=== PATIENT | female | born 1945 | race Caucasian/White ===

== ENCOUNTER 2019-09-14 12:52 | Inpatient (IN) ==
[2019-09-14] MEDS ORDERED: NS 1,000 ML IV ONE ×2 (13:20→14:53)
[2019-09-14] MEDS ORDERED: DILAUDID IV ONE ×3 (13:20→14:20)
[2019-09-14 14:04] LABS: BASO# 0.06 X1000 (0.0-0.2); BASO% 0.2 % (0.0-0.8); EOS# 0.38 X1000 (0.0-0.7); EOS% 1.4 % (0.0-10.0); HEMATOCRIT 47.1 % (37.0-47.0); HEMOGLOBIN 15.2 g/dL (12.0-16.0); IMM GRAN# 0.11 X1000 (0.0-0.04); IMM GRAN% 0.4 % (0.0-0.5); LYMPH# 4.35 X1000 (1.2-3.4); LYMPH% 16.3 % (20.5-51.1); MCH 27.4 PG (27-31); MCHC 32.3 g/dL (33-37); MCV 84.9 FL (81-99); MONO# 1.46 X1000 (0.11-0.59); MONO% 5.5 % (1.7-9.3); MPV 9.8 FL (7.4-10.4); NEUT# 20.37 X1000 (1.4-6.5); NEUT% 76.2 % (42.2-75.2); PLT 309 X1000 (130-400); RBC 5.55 XMIL (4.2-5.4); RDW 14.8 % (11.5-14.5); WBC 26.73 X1000 (4.8-10.8)
[2019-09-14] MEDS ORDERED: PHENERGAN IV ONE (14:09)
[2019-09-14] MEDS ORDERED: SODIUM CHLORIDE 0.9% INJ ONE (14:09)
[2019-09-14] MEDS ORDERED: NS 500 ML IV ONE (14:54)
[2019-09-14] MEDS ORDERED: ZOSYN 3.375 GM in NS 50 ML IV ONE (16:28)
[2019-09-14 17:39] LABS: AGAP 16; ALB/GLOB RATIO 1.2; ALBUMIN 3.5 g/dL (3.5-5.0); ALKALINE PHOSPHATASE 107 U/L (32-104); BUN 16 mg/dL (8-22); CALCIUM 10.4 mg/dL (8.8-10.2); CHLORIDE 101 mmol/L (98-107); COSMO 284; CREATININE 0.7 mg/dL (0.5-0.9); ESTIMATED GFR > 60; GLUCOSE 131 mg/dL (70-104); GOT 30 U/L (10-30); GPT 36 U/L (10-36); POTASSIUM 3.3 mmol/L (3.5-5.1); SODIUM 141 mmol/L (136-145); TCO2 24 mmol/L (25-35); TOTAL BILIRUBIN 0.31 mg/dL (0.20-1.00); TOTAL PROTEIN 6.5 g/dL (6.3-8.3)
--- NOTE | 2019-09-14 18:02 | Diag Imaging Result Doc PS360 ---
EXAM: CT ABDOMEN/PELVIS W/O CONTRAST HISTORY: abd pain TECHNIQUE: CT abdomen and pelvis without oral or intravenous contrast COMPARISON: 07/09/2011 FINDINGS: No calcified gallstones or adjacent inflammation. No focal hepatic abnormality identified on this noncontrasted exam. There is a moderate sized hiatal hernia. No splenomegaly. Mild inflammatory changes about the pancreas. No pancreatic calcifications. No pseudocyst. There are bilateral nonobstructing renal stones. There is scarring to the left kidney. No hydronephrosis. Prominent atherosclerosis. No aortic aneurysm. Moderate to prominent stool throughout the colon. There are scattered colonic diverticula. No inflammation about the cecum. No abscess. The urinary bladder is moderately distended and normal. The uterus has been removed. No pelvic mass. There are L5 pars defects. IMPRESSION: 1.Likely pancreatitis. Clinical and laboratory analysis recommended. 2.Colonic diverticulosis 3.Constipation 4.Hysterectomy 5.Prominent atherosclerosis 6.Bilateral nephrolithiasis 7.Hiatal hernia This exam was performed using automated exposure control, adjustment of mA or kV according to patient size, and/or use of iterative reconstruction technique. Electronically signed by Ulysses Cedillo 09/14/2019 5:59 PM
--- NOTE | 2019-09-14 18:33 | PROVIDER DOCUMENTATION ---
This chart was entered by Niurka Silver Scribe, acting as scribe for Kendall Campbell DO. HPI-Abdominal Pain/GI Problem - General Chief Complaint: Abdominal Pain Stated Complaint: ABD PAIN,VOMITING Time Seen by Provider: 09/14/19 13:13 Source: patient Allergies/Adverse Reactions: Patient Allergies Allergy/AdvReac Type Severity Reaction Status Date / Time No Known Allergies Allergy Verified 12/17/15 10:14 Home Medications: Home Medication List Medication Instructions Recorded Confirmed Last Taken Type Hydrochlorothiazide 25 mg PO DAILY 07/01/13 12/17/15 1 Day Ago History ~12/16/15 Hydroxychloroquine [Plaquenil] 200 mg PO DAILY 07/01/13 12/17/15 1 Day Ago History ~12/16/15 SIMVAstatin [Zocor] 40 mg PO QHS 07/01/13 12/17/15 1 Day Ago History ~12/16/15 Duloxetine [Cymbalta] 30 mg PO BID 12/17/15 12/17/15 1 Day Ago History ~12/16/15 Metoclopramide [Reglan] 10 mg PO DAILY 12/17/15 12/17/15 1 Day Ago History ~12/16/15 - History of Present Illness-ABD Nature of Presenting Problems: Patient is a 74 y/o female presenting to the ED today c/o abdominal pain and nausea/vomiting. Patient reports onset of symptoms approximately 2-3 hours ago after eating breakfast and reports coffee-ground emesis. Patient states a few days ago, she had a large bloody bowel movement. Patient reports that approximately 3 weeks ago, she was discharged from a Trauma ICU at a hospital in [place] after a fall resulting in a brain bleed. Patient reports she has had minimal pain since discharge and has been taking her medication PRN. Patient reports her last bowel movement was "several days ago". Patient reports a prior hiatal hernia repair but denies all other abdominal surgeries. Patient denies all other signs/symptoms. Abdominal Pain Onset Location: reports: RUQ Pain Radiation: reports: epigastric Quality of Pain: reports: sharp Onset/Duration: reports: abrupt, 1-3 hours ago Timing: reports: still present Modifying Factors: worse with: lying down Associated Symptoms: reports: vomiting Last BM: 3 days ago Dark Stools Present?: reports: maroon (a few days ago) # of Diarrhea Episodes: 0 Rectal Pain: reports: none Emesis Description: reports: coffee grounds Bruising or Bleeding Gums?: No Similar Symptoms Previously?: No Recently seen or treated by another doctor?: No Review of Systems - Adult - REVIEW OF SYSTEMS - ADULT Constitutional: denies: chills, fever Eyes: reports: no symptoms reported Ears, Nose, Mouth & Throat: reports: no symptoms reported Cardiovascular: denies: chest pain Respiratory: denies: cough, shortness of breath Gastrointestinal: reports: abdominal pain, nausea, vomiting. denies: diarrhea Genitourinary: reports: no symptoms reported Musculoskeletal: reports: no symptoms reported Integumentary: reports: no symptoms reported Neurological: reports: no symptoms reported Psychiatric: reports: no symptoms reported Endocrine: reports: no symptoms reported Hematologic/Lymphatic: reports: no symptoms reported Allergic/Immunologic: reports: no symptoms reported All Other Systems: Reviewed and Negative Past History - Adult - PAST MEDICAL HISTORY-ADULT Review of Records: reports: Old Records Reviewed, Nursing Assessment Review, Medications Reviewed, Social history reviewed & non-contributory. Genitourinary: reports: kidney stones - PRIOR SURGERIES/PROCEDURES Surgical/Procedure History: reports: reviewed, not pertinent - IMMUNIZATION STATUS Childhood Immunizations: See Nurse Assessment Flu Vaccine: See Nurse Assessment - FAMILY HISTORY Family History: reviewed, not pertinent Physical Exam-General - PHYSICAL EXAM-ADULT Initial Vital Signs Reviewed: Yes - CONSTITUTIONAL General Appearance: alert, mild distress - EYES Eyes: PERRL/EOMI, pink conjunctivae - HEAD, EARS, NOSE, MOUTH & THROAT HENMT: normocephalic/atraumatic, moist mucous membranes, normal ENT inspection, TMs normal, pharynx normal - NECK Neck: full range of motion, normal inspection - RESPIRATORY Respiratory: lungs clear, normal breath sounds, no respiratory distress, no accessory muscle use - CARDIOVASCULAR Cardiovascular: regular rate, rhythm, no edema - GASTROINTESTINAL (ABDOMEN) Abdominal Exam: soft, guarding (voluntary), tenderness (RUQ and epigastric) - GENITOURINARY Rectal Exam: normal exam, other (brown stool) - LYMPHATIC Lymphatic: no adenopathy - MUSCULOSKELETAL Back Exam: normal inspection Extremity: normal range of motion, normal gait, normal inspection - SKIN Integumentary: normal color, normal turgor, warm/dry - NEUROLOGIC Neurologic: grossly normal, no motor/sensory deficits - PSYCHIATRIC Psych/Mental Status: normal mood/affect, normal thought content, normal thought process Progress - PLAN OF CARE/RESULTS Progress/Plan/Lab Results: Vital Signs - 8 hr 09/14/19 13:04 Temperature 97.3 F L Pulse Rate 90 Respiratory Rate 16 Blood Pressure 98/70 O2 Sat by Pulse Oximetry 95 Orders Category Date Time Status NEWS Score 2-4:Order NEWS Lactate Series NOW Care 09/14/19 13:10 Active LACTATE, PLASMA [CHEM] Lab 09/14/19 13:15 Uncollected LACTATE, PLASMA [CHEM] Lab 09/14/19 16:15 Uncollected LACTATE, PLASMA [CHEM] Lab 09/14/19 19:15 Uncollected Result Diagrams: 09/14/19 13:35 09/14/19 17:00 - REASSESSMENT Reassessment #1 Time Reassessed: 16:27 Status: improving (slight improvement of pain. I have appologized about the wait for CT and explained why.) Reassessment #2 Time Reassessed: 18:30 Status: unchanged - CONSULTS/PCP/HOSPITALIST Notification #1 *Consult/PCP/Hospitalist*: Griselda FONSECA Time Discussed: 18:30 ([facility] Consult Disposition: Will see in ED Departure - Departure Date of Disposition Decision: 09/14/19 Time of Disposition Decision: 18:32 DIAGNOSIS: Pancreatitis Qualifiers: Chronicity: acute Pancreatitis type: idiopathic Acute pancreatitis com plication: unspecified Qualified Code(s): K85.00 - Idiopathic acute pancreatitis without necrosis or infection Disposition: ADMITTED INPATIENT 09 Certified Medical Emergency: Emergent Condition: Fair Referrals and Follow-Ups: Tani Youssef MD [Primary Care Provider] - - Critical Care Note This patient required my direct & personal management of CC.: No Attestation - Physician/ SID Attestation Patient care was provided by Advanced Practice Provider:: No The physician spent face to face time with patient:: Yes Advanced Practice Provider documentation review:: Supervising physician onsite and consulted in the evaluation and care of this patient. The physician did have a face to face encounter with the patient. This chart was documented by the indicated scribe, (Niurka Silver, Shauna) and accurately reflects the services I performed and decisions made by me, Kendall Campbell DO, as attested by the provider's signature.
[2019-09-14] MEDS ORDERED: DILAUDID ONE (18:47)
[2019-09-14] MEDS ORDERED: POTASSIUM CHLORIDE 40 MEQ/SWI 40 MEQ/100 ML IVPB IV ONE (19:27)
[2019-09-14] MEDS ORDERED: SODIUM CHLORIDE 0.9% INJ SCH (21:15)
[2019-09-14] MEDS: LR 1,000 ML IV SCH (21:29)
[2019-09-14] MEDS: DILAUDID IV PRN (21:32)
[2019-09-14] MEDS: PHENERGAN IV PRN (21:33)
[2019-09-14] MEDS: SODIUM CHLORIDE 0.9% INJ PRN (21:34)
[2019-09-14] MEDS: PROTONIX IV SCH (21:50)
[2019-09-14] MEDS: POTASSIUM CHLORIDE 20 MEQ/SWI 20 MEQ/100 ML IVPB IV SCH ×2 (21:54→23:54)
--- NOTE | 2019-09-14 21:58 | HISTORY AND PHYSICAL ---
CHIEF COMPLAINT: Abdominal pain, nausea, vomiting. HISTORY OF PRESENT ILLNESS: Ms. Chiang is a 74-year-old female that had acute onset abdominal pain today at noon with nausea and vomiting. It was after eating breakfast. She reportedly a few days ago had a large bowel movement with blood in it. She stated that the emesis was coffee ground appearing. She was recently discharged from a trauma ICU in [place] after falling and having a brain bleed. This was around 3 weeks ago. She was discharged with p.r.n. medications and she states that the pain is sharp in the epigastric area and right upper quadrant. Nothing makes it better. Nothing makes it worse. She denied any diarrhea or other stools with blood in them. However, she did state that she has not had any bowel movements for several days. However, she could not tell me how many days other than GERD. Her laboratory data showed an elevated lipase. A CT scan confirmed acute pancreatitis. She will be admitted to [facility] for further evaluation and treatment. PAST MEDICAL HISTORY: See HPI. PREVIOUS SURGICAL HISTORY: States that she had surgery for a hiatal hernia, assuming it was a laparoscopic Baljit fundoplication. However, I am unsure. The patient was a fairly poor historian. SOCIAL HISTORY: Lives at home with her . Very rare alcohol, usually just a drink or 2 on the holidays. No illicit drugs. No tobacco. FAMILY HISTORY: Coronary artery disease in both parents. One brother had Hodgkin's lymphoma. ALLERGIES: No known drug allergies. HOME MEDICATIONS: I believe she takes Plaquenil. She was unable to tell me her other home medications or the p.r.n. medications that she was started on after her fall. REVIEW OF SYSTEMS: Fourteen-point review of systems conducted with the patient. Pertinent positives listed above in the HPI. All other systems reviewed and found to be negative. PHYSICAL EXAMINATION: VITAL SIGNS: Temperature 97.6, pulse 96, respirations 22, blood pressure 189/105, oxygen saturation 94% on room air. GENERAL: A 74-year-old female in moderate distress associated with pain and nausea lying in the ER stretcher. She is not a great historian and her does most of the talking for her. I believe this is related to her pain being exacerbated. HEENT: Head is atraumatic, normocephalic. Pupils equal, round, reactive to light. Extraocular eye movement is intact. Sclera is anicteric. Conjunctiva is pink. Oral mucosa is moist. NECK: Supple. No JVD. No thyromegaly. Trachea is midline. No cervical lymphadenopathy. CARDIAC: S1, S2 appreciated. No murmurs, gallops, rubs. LUNGS: Clear to auscultation bilaterally. No rhonchi, wheezes or rales. Symmetric rise and fall with respirations. ABDOMEN: Soft, nondistended. Tender in the epigastric area and right upper quadrant. No rebound tenderness. No pulsatile mass. No organomegaly. Bowel sounds present all 4 quadrants, normoactive. EXTREMITIES: No clubbing, cyanosis or edema. Two-plus pedal pulses bilaterally. GENITOURINARY: No bladder distention. Patient voids. Otherwise deferred. NEUROLOGICAL: Alert and oriented times 3. Cranial nerves 2 through 12 grossly intact. DIAGNOSTIC DATA: CT of the abdomen and pelvis shows probable acute pancreatitis, colonic diverticulosis, constipation, hysterectomy, prominent arthrosclerosis, bilateral nephrolithiasis and hiatal hernia. LABORATORY DATA: WBC 26.73. Hemoglobin 15.2. Hematocrit 47.1. Platelet count 309. Sodium 141. Potassium 3.3. Chloride 101. Carbon dioxide 24. BUN 16. Creatinine 0.7. Glucose 131. Lipase 2234. Plasma lactate 3.5. ASSESSMENT: 1. Acute pancreatitis of unknown etiology. 2. Leukocytosis, possibly reactive. However, it could be infectious in nature. 3. Lupus, aware. 4. Recent fall with head trauma and brain bleed. 5. Hypokalemia. 6. Hyperglycemia with no diagnosis of diabetes mellitus. PLAN: Admit patient to [facility]. She was given normal saline boluses in the emergency room. We will start lactated Ringer's at 100 mL an hour. Zofran and Phenergan to be alternated for nausea. Dilaudid as needed for pain. A urine sample has not been obtained. Patient appears to have a source of infection. However, it could be reactive. We will start prophylactically on Zosyn 3.375 IV q.6 hours. The gallbladder appeared normal on the CT scan. There was mention of diverticulosis but no mention of diverticulitis and, again, the urine is pending. Hold the patient NPO. Unsure of the source of the pancreatitis. It is possible that it could be medication induced as the patient just started new medications. However, she was unable to tell me which ones. We will check a triglyceride level. Patient does have autoimmune history in the form of lupus. Cannot exclude that as a possibility for causing her pancreatitis. We will check a triglyceride level. Treat her potassium and recheck. Further recommendation per patient clinical course. Dictated by RAYMUNDO Christiansen for Marito Cristobal MD I have performed a face to face diagnostic evaluation. Labs/xrays- reviewed. Exam- Chest clear, Abd- diffuse tenderness. A/P- Acute pancreatitis- Admit, NPO, Pain control. GI consult. cc: RAYMUNDO Christiansen MD Thomas E. Lockard, DO DINH
[2019-09-15] MEDS: ZOFRAN IV PRN ×4 (00:28→23:52)
[2019-09-15] MEDS: ZOSYN 3.375 GM in NS 50 ML IV SCH ×5 (00:28→23:52)
[2019-09-15] MEDS: DILAUDID IV PRN ×7 (00:29→23:51)
[2019-09-15 02:22] LABS: URINE SOURCE CATH
[2019-09-15] MEDS: SODIUM CHLORIDE 0.9% INJ PRN ×3 (02:45→20:23)
[2019-09-15] MEDS: PHENERGAN IV PRN ×4 (02:45→20:23)
[2019-09-15 03:07] LABS: BILIRUBIN URINE NEGATIVE (NEGATIVE); BLOOD URINE NEGATIVE (NEGATIVE); COLOR YELLOW; GLUCOSE URINE 100 mg/dL (NEGATIVE); KETONE URINE NEGATIVE (NEGATIVE); LEUKOCYTES URINE NEGATIVE (NEGATIVE); NITRITE URINE NEGATIVE (NEGATIVE); PH URINE 6.5; PROTEIN URINE 50 mg/dL (NEGATIVE); SP GRAVITY URINE 1.019; TURBIDITY URINE CLEAR (CLEAR); UROBILINOGEN URINE NORMAL (NORMAL)
[2019-09-15 03:08] LABS: UR EPITHELIAL CELLS <10 /HPF (<10); URINE BACTERIA NEGATIVE /HPF; URINE RBC <10 /HPF (<10); URINE WBC <10 /HPF (<10)
[2019-09-15] MEDS: LR 1,000 ML IV SCH ×4 (06:32→17:08)
[2019-09-15 06:35] LABS: BASO# 0.03 X1000 (0.0-0.2); BASO% 0.1 % (0.0-0.8); EOS# 0.02 X1000 (0.0-0.7); EOS% 0.1 % (0.0-10.0); HEMOGLOBIN 16.4 g/dL (12.0-16.0); IMM GRAN# 0.09 X1000 (0.0-0.04); IMM GRAN% 0.4 % (0.0-0.5); LYMPH% 4.1 % (20.5-51.1); MCH 27.8 PG (27-31); MCHC 32.8 g/dL (33-37); MCV 84.9 FL (81-99); MONO# 1.27 X1000 (0.11-0.59); MONO% 5.8 % (1.7-9.3); NEUT# 19.43 X1000 (1.4-6.5); NEUT% 89.5 % (42.2-75.2); PLT 230 X1000 (130-400); RBC 5.89 XMIL (4.2-5.4); RDW 15.5 % (11.5-14.5); WBC 21.74 X1000 (4.8-10.8)
[2019-09-15 07:52] LABS: ESTIMATED GFR > 60
[2019-09-15 07:57] LABS: CHLORIDE 104 mmol/L (98-107); POTASSIUM 4.2 mmol/L (3.5-5.1); SODIUM 144 mmol/L (136-145)
[2019-09-15 07:58] LABS: BUN 18 mg/dL (8-22); CREATININE 0.8 mg/dL (0.5-0.9); GLUCOSE 164 mg/dL (70-104); TCO2 15 mmol/L (25-35)
[2019-09-15 08:02] LABS: AGAP 25; COSMO 292
--- NOTE | 2019-09-15 08:44 | Diag Imaging Result Doc PS360 ---
EXAM: US ABDOMEN-COMPLETE - 09/15/2019 HISTORY: abdominal pain TECHNIQUE: Ultrasound abdomen COMPARISON: 04/05/2020 CT abdomen/pelvis without contrast FINDINGS: According to the technologist, the patient was not able to fully cooperate with positioning. There are no substantial abnormalities of the liver or spleen identified. There is no ascites seen. The gallbladder is visualized and demonstrates no abnormality is. There is no evidence of gallstones. The common bile duct is upper normal caliber at 6.4 mm. The visualized pancreas appears somewhat prominent contains ill-defined hypoechoic area at the head, which may relate to pancreatitis. There is no pseudocyst identified. There are no abnormalities in bilateral kidneys identified. The visualized aorta appears normal caliber. The IVC is obscured by artifacts. IMPRESSION: Apparent pancreatitis. No visible gallbladder abnormality. No evidence of gallstones. Upper normal caliber common bile duct at 6.4 mm. Electronically signed by Andres Sarabia 09/15/2019 8:42 AM
--- NOTE | 2019-09-15 08:46 | Diag Imaging Result Doc PS360 ---
EXAM: CHEST-2 VIEWS - 09/15/2019 HISTORY: r/o pna TECHNIQUE: Chest two views COMPARISON: 08/02/2016 FINDINGS: There are artifacts from motion on the lateral view. Heart size appears upper normal. Lungs appear grossly clear. There is no substantial pleural effusion or pneumothorax identified. IMPRESSION: No evidence of pneumonia. Electronically signed by Andres Sarabia 09/15/2019 8:43 AM
[2019-09-15] MEDS: PROTONIX IV SCH (08:53)
[2019-09-15 09:02] LABS: BANDS 2 % (0-1); LYMPHS 6 % (21-51); SEGS 92 % (42-75)
--- NOTE | 2019-09-15 10:49 | PROGRESS NOTE ---
DATE: 09/15/2019 SUBJECTIVE: Patient reports pain is under control. She is sleepy because she had chest pain medication less than 1 hour ago. OBJECTIVE: Vital Signs: Temperature 98.3 degrees, heart rate 104, respiratory rate 22, blood pressure 146/91, O2 saturation 91% on room air. General: This is a 74-year-old chronically ill- appearing, female lying in bed, in no acute distress. Cardiovascular: S1, S2 heard. No murmurs, gallops, or rubs. Regular rate and rhythm. Respiratory: Clear bilaterally to auscultation. No work of breathing or using accessory muscles. Abdomen: Soft, nontender to palpation. Bowel sounds present. No organomegaly. Extremities: No clubbing, cyanosis, or edema. Peripheral pulses present in both legs. Neurological: The patient is a little bit sleepy because she has pain medication. She does follow commands. Moves all extremities. LABORATORY DATA: White cell count 21.74, hemoglobin 16.4, hematocrit 50.0, platelets 230,000 with normal BMP. ASSESSMENT AND PLAN: 1. Acute pancreatitis. The etiology is unknown. We have checked an abdomen ultrasound which did not show any gallstones. Patient is not a known alcoholic. Considering her history of lupus, it could be autoimmune pancreatitis. We will see if we can check IgG for this patient but the treatment will be the same, IV fluids and pain medications. Pain is under control. Continue with the same management. 2. Leukocytosis. According to the CT of the abdomen, it does not look like this pancreatitis is infective. In any case, because of her very elevated white cell count, she has been placed on Zosyn 3.375 every 6 hours and white cell count is getting better. Today is 21,000. So at this point, we will continue with the same management. 3. Recent fall with head trauma and brain bleed. Aware. We will continue to monitor. 4. Hypokalemia, resolved. 5. Hyperglycemia. We will rule out diabetes mellitus by doing hemoglobin A1c. 6. Disposition. We are going to monitor this patient closely. Gastroenterology has been consulted. We will follow recommendations. cc: Ricardo Goodwin MD
--- NOTE | 2019-09-15 13:35 | GASTROENTEROLOGY CONSULTATION ---
DATE: 09/15/2019 REASON FOR CONSULTATION: Acute pancreatitis. HISTORY OF PRESENT ILLNESS: Ms. Keke Licona is a 74-year-old woman with a past medical history of lupus, GERD, hiatal hernia repair with Baljit fundoplication, chronic nausea, colonic polyps, non H. pylori gastritis, and recent hospitalization for a fall with subdural hematoma and skull fracture, who presents with acute abdominal pain with associated nausea and vomiting after eating breakfast yesterday. Currently, she is confused and unable to provide a review of systems. History is obtained from the record and family at bedside. The patient was complaining of severe epigastric and right upper quadrant pain with some associated N/V. No fevers, chest pain, shortness of breath, abnormal weight loss, diarrhea. However, she has had some constipation. She had some dark stool last week; however, hemoccult here is negative and hgb is normal. Of note, the patient was recently hospitalized in the ICU in [place] after having her fall. She was recently seen by GI earlier this past week, on Monday, for unclear reasons and was started on multiple new medications per son's report. REVIEW OF SYSTEMS: Limited. PAST MEDICAL HISTORY: Lupus, GERD, gastritis, history of hiatal hernia, colonic polyps, hypothyroidism. PAST SURGICAL HISTORY: Baljit fundoplication, hysterectomy. SOCIAL HISTORY: She lives at home with her . Rare alcohol. No smoking or drug use. FAMILY HISTORY: No family history of GI malignancies, pancreatitis. Both parents of heart attacks. HOME MEDICATIONS: She is on Plaquenil, Pepcid, Synthroid. Apparently, she was recently started on nitrofurantoin. ALLERGIES: No known drug allergies. PHYSICAL EXAMINATION: Vital Signs: Temperature is 98.3 degrees, heart rate of 104, respiratory rate 22, blood pressure 146/91, O2 saturation 91% on room air. General: The patient is sleepy but arousable, confused. HEENT: Sclerae anicteric. Moist mucous membranes. Extraocular motor intact. Neck: Supple. No JVD or lymphadenopathy. Cardiac: She is tachycardic. No murmurs. Respiratory: Increased work of breathing. Lungs are clear to auscultation bilaterally, anteriorly. No wheezing. Abdomen: Obese, mildly distended, not tympanic, soft, tender to palpation throughout. No rebound or guarding. Extremities: No clubbing, cyanosis, or edema. Neurologic: Moving all extremities symmetrically. LABS: White count of 21.7 from 26 yesterday, hemoglobin 16.4 from 15.2, platelets of 230,000 from 309,000. Sodium 144, potassium 4.2, chloride of 104, bicarb 15 from 24 yesterday, BUN of 18, creatinine of 0.8, glucose of 164. Lactate of 2.7 from 3.5. Lipase of 2234. LFTs are unrevealing. Alkaline phosphatase of 107. UA shows protein and glucose. IMAGING: CT of the abdomen and pelvis without contrast shows pancreatitis, diverticulosis, constipation, hysterectomy, prominent atherosclerosis, bilateral nephrolithiasis, hiatal hernia. Abdominal ultrasound, no visible gallbladder abnormality. No evidence of stones. Common bile duct measuring at 6.4 mm. Chest x-ray, no evidence of pneumonia. ASSESSMENT AND PLAN: Ms. Keke Licona is a 74-year-old woman with a past medical history of gastroesophageal reflux disease, gastritis, lupus, on Plaquenil, and recent subdural hematoma after a fall, who presents with acute pancreatitis from unclear etiology. Ultrasound is negative for gallstones. Common bile duct measured 6.4 mm. She has normal liver function tests without any signs of cholestasis. Her labs are notable for significant leukocytosis which is coming down. She has two blood cultures that are pending. Hemoccult is negative. Labs notable for some initially hypokalemia when she presented which is normal now, lactic acidosis which is improving, low bicarb of 15, 24. She is currently receiving lactated Ringer's at 100 mL per hour, proton pump inhibitor intravenously twice a day, Phenergan for nausea and Zofran as well as needed, Dilaudid as needed for pain, and empiric Zosyn. However, there are no signs of infection based off imaging. Cultures are pending. She does not appear to be having an acute gastrointestinal bleed as her hemoglobin is normal and her Hemoccult is negative. I would not recommend continuing to check fecal occult blood as this is not helpful. No labs were drawn this morning. I have ordered a CBC, CMP, and a LDH. Replete electrolytes as needed. Monitor for changes in hemodynamic status. Serial abdominal exams. # Acute pancreatitis # Leukocytosis # Hypokalemia # Lactic acidosis # Nausea and vomiting # GERD # H/o fundoplication # Lupus Thank you for this consult. We will follow with you. Please call with any questions or concerns. FABRIZIO
[2019-09-16] MEDS: LR 1,000 ML IV SCH ×4 (00:05→14:49)
[2019-09-16] MEDS: DILAUDID IV PRN ×7 (03:05→23:07)
[2019-09-16] MEDS: PHENERGAN IV PRN ×6 (03:09→22:18)
[2019-09-16] MEDS: ZOSYN 3.375 GM in NS 50 ML IV SCH ×5 (05:25→23:09)
[2019-09-16 06:47] LABS: BASO# 0.02 X1000 (0.0-0.2); BASO% 0.1 % (0.0-0.8); HEMATOCRIT 47.6 % (37.0-47.0); HEMOGLOBIN 15.1 g/dL (12.0-16.0); IMM GRAN# 0.09 X1000 (0.0-0.04); IMM GRAN% 0.3 % (0.0-0.5); LYMPH# 0.95 X1000 (1.2-3.4); LYMPH% 3.3 % (20.5-51.1); MCHC 31.7 g/dL (33-37); MCV 85.2 FL (81-99); MONO# 1.78 X1000 (0.11-0.59); MONO% 6.2 % (1.7-9.3); MPV 10.2 FL (7.4-10.4); NEUT% 90.1 % (42.2-75.2); PLT 187 X1000 (130-400); RBC 5.59 XMIL (4.2-5.4); RDW 15.6 % (11.5-14.5); WBC 28.84 X1000 (4.8-10.8)
[2019-09-16] MEDS: SODIUM CHLORIDE 0.9% INJ PRN ×3 (06:51→22:19)
[2019-09-16 06:56] LABS: AGAP 15; ALBUMIN 2.9 g/dL (3.5-5.0); BUN 21 mg/dL (8-22); CHLORIDE 106 mmol/L (98-107); COSMO 294; CREATININE 0.6 mg/dL (0.5-0.9); ESTIMATED GFR > 60; GLUCOSE 144 mg/dL (70-104); PHOSPHORUS 1.6 mg/dL (2.7-4.5); POTASSIUM 3.5 mmol/L (3.5-5.1); SODIUM 145 mmol/L (136-145); TCO2 24 mmol/L (25-35)
[2019-09-16 08:49] LABS: ANISOCYTOSIS OCCASIONAL; BANDS 1 % (0-1); LYMPHS 5 % (21-51); MONO 4 % (1-9); SEGS 90 % (42-75)
[2019-09-16] MEDS: PROTONIX IV SCH (09:52)
[2019-09-16] MEDS: SODIUM CHLORIDE 0.9% INJ SCH (09:52)
[2019-09-16] MEDS: ZOFRAN IV PRN ×2 (10:11→20:10)
--- NOTE | 2019-09-16 11:33 | GASTROENTEROLOGY PROGRESS NOTE ---
DATE: 09/16/2019 SUBJECTIVE: Ms. Chiang is a 74-year-old female who was resting in bed. Family is at the bedside. Unable to assess patient because patient was not responding to any verbal or tactile stimuli. Family mentioned that the patient has not had a bowel movement since Monday. OBJECTIVE: Vital Signs: Temperature 98.2 degrees, pulse 107, respirations 22, blood pressure 152/105, oxygen saturation 94% on room air. The patient's weight is 155 pounds. BMI is 26.6 kg/m2. General: Patient is not responding. She is not awake or alert. HEENT: Pale conjunctivae no icterus. PERRL. Neck: Supple. Lungs: Clear to auscultation. Cardiovascular: The patient is tachycardic. Abdomen: Obese, distended, tender to palpation on the left side. Extremities: No clubbing, no cyanosis, no edema. Neurologic: The patient is not awake or alert. LABORATORY DATA: WBC 28.84, RBC 5.59, hemoglobin 15.1, hematocrit is 47.6, platelet count is 187,000. Sodium 145, potassium 3.5, chloride 106, carbon dioxide 24, anion gap 15, BUN 21, creatinine 0.6, glucose 144, calcium 9.0, phosphorus 1.6, albumin is 2.9. Urinalysis yesterday showed protein of 50, glucose of 100. IMAGING: Her chest x-ray yesterday showed no evidence of pneumonia. Abdominal ultrasound has shown apparent pancreatitis. IMPRESSION AND PLAN: Acute pancreatitis Leukocytosis Nausea and vomiting GERD H/o fundoplication H/o lupus Aphasia PLAN: Ms Chiang is a 74-year-old female with a history of lupus. GI has been following her for an acute pancreatitis. The patient's WBCs today are 28.84. She is currently receiving antibiotic, Zosyn 100 mL every 6 hours. The patient is on lactated Ringer's at 150 mL. She is on PPIs daily. For her nausea and vomiting she is on Zofran and Phenergan. Patient has not had a bowel movement since Monday. I have ordered a KUB of the abdomen to rule out any constipation. We will continue to monitor the patient and provide supportive care. This plan was discussed with Dr. De Leon. Please call us for any further questions or concerns. Dictated by RAYMUNDO Jain for Olegario De Leon MD Physician Attestation I have seen and examined the patient. I have discussed and reviewed the note by Lexie FONSECA and agree with findings and plan as documented. She is getting better. She has some ?broca's aphasia. She follows commands but her speech is not comprehensible. Continue supportive care. Replete lytes. Abdominal distension is likely from 3rd spacing. No ileus on KUB. Discussed with primary team. FABRIZIO
--- NOTE | 2019-09-16 12:54 | Diag Imaging Result Doc PS360 ---
EXAM: KUB ABDOMEN INDICATION: constipation TECHNIQUE: One view COMPARISON: None. FINDINGS: There is abundant stool in the colon suggesting moderate constipation. There is no obstructive bowel pattern. There is no evidence of large volume free abdominal gas. There is nephrolithiasis bilaterally, which was also seen on the previous CT. IMPRESSION: Suggestion of constipation. Electronically signed by Tani Haas 09/16/2019 12:51 PM
--- NOTE | 2019-09-16 17:49 | PROGRESS NOTE ---
DATE: 09/16/2019 I saw and examined Ms. Chiang, Ms. Chiang refers to be doing fair. She is remarkably dry in her mouth that you can barely hear what she is trying to say. Her 2 sons were at the bedside at the time of the encounter. OBJECTIVE: Vitals: Blood pressure is 145/95, pulse of 102, respiration is 23, temperature 98.3 degrees, patient is saturating 92%. General: Ms. Chiang 74 years old elderly female she is in bed no distress. Mucosa is pink, dry. Anicteric, acyanotic. Neck: Supple. Chest: Good entry bilateral. There is no crepitations, no rhonchi. Cardiovascular: Regular rate and rhythm. Abdomen: Soft, is remarkably distended. Bowel sounds present but hypoactive. There is a periumbilical hernia palpated. Extremities: No pedal edema. ACADEMIC AFFAIRS COORDINATOR: Patient is awake, alert, follows basic commands. However every now and then she follows some commands but not all. She was able to move all extremities upon painful stimulation. LABORATORY DATA: Has been reviewed, WBC is 28.84, hemoglobin is 15.1, platelet count of 187,000. Chemistry is also reviewed completely within normal range. Phosphorus is low at 1.6. ASSESSMENT: 1. Acute pancreatitis of unclear etiology. So far patient denies any alcohol use. Gallbladder imaging has been negative, triglyceride level is unremarkable. She has a history of lupus so autoimmune pancreatitis is a possibility. IgG4 has been ordered. Medication induced is also a possibility. Patient was on Macrobid and hydrochlorothiazide both of which can cause pancreatitis. It could also be an idiopathic. I think once all the possible causes rule out she would also need to have an MRI of the abdomen with pancreatic protocol to rule out any pancreatic anatomy variation would be necessary. 2.Clinical volume depletion. Will continue with the IV fluids. 3. Systemic inflammatory response syndrome positive most likely due to the ongoing pancreatic inflammation. However underlying infectious etiology cannot be entirely ruled out. Cultures have been done waiting on the results, patient has also been started on antibiotics, will follow. 4. Recent fall with trauma and brain bleed. There was a concern early on today by other providers that Ms. Chiang was having some element of aphasia so we are going to do a CT scan of the head to make sure we are not missing anything neurological at this point. cc: Roney Calle MD [facility] HOSPITALFrancie
[2019-09-16] MEDS ORDERED: POTASSIUM PHOSPHATE 40 MEQ in NS 250 ML IV ONE (18:00)
--- NOTE | 2019-09-16 18:16 | Diag Imaging Result Doc PS360 ---
EXAM: CT HEAD W/O CONTRAST HISTORY: encephalopathy TECHNIQUE: CT head without contrast COMPARISON: 12/17/2015 FINDINGS: No parenchymal hemorrhage. No epidural or subdural hematoma. No subarachnoid hemorrhage. No mass identified on this noncontrasted exam. No hydrocephalus. No sinus opacification. IMPRESSION: No hemorrhage. Negative brain CT without contrast. This exam was performed using automated exposure control, adjustment of mA or kV according to patient size, and/or use of iterative reconstruction technique. Electronically signed by Ulysses Cedillo 09/16/2019 6:14 PM
[2019-09-16] MEDS ORDERED: NEOSPORIN OINTMENT TUBE TOP PRN (18:23)
[2019-09-17] MEDS: LR 1,000 ML IV SCH ×8 (00:20→23:53)
[2019-09-17] MEDS: PHENERGAN IV PRN ×4 (02:20→19:37)
[2019-09-17] MEDS: SODIUM CHLORIDE 0.9% INJ PRN ×2 (02:20→06:17)
[2019-09-17] MEDS: DILAUDID IV PRN ×4 (02:21→19:37)
[2019-09-17] MEDS: ZOSYN 3.375 GM in NS 50 ML IV SCH ×3 (04:56→21:30)
[2019-09-17] MEDS: ZOFRAN IV PRN (04:56)
[2019-09-17 06:03] LABS: BASO# 0.01 X1000 (0.0-0.2); BASO% 0.1 % (0.0-0.8); HEMATOCRIT 37.8 % (37.0-47.0); HEMOGLOBIN 11.9 g/dL (12.0-16.0); IMM GRAN# 0.06 X1000 (0.0-0.04); IMM GRAN% 0.4 % (0.0-0.5); LYMPH# 0.85 X1000 (1.2-3.4); LYMPH% 5.1 % (20.5-51.1); MCH 27.1 PG (27-31); MCHC 31.5 g/dL (33-37); MCV 86.1 FL (81-99); MONO# 0.82 X1000 (0.11-0.59); MONO% 4.9 % (1.7-9.3); NEUT% 89.5 % (42.2-75.2); PLT 128 X1000 (130-400); RBC 4.39 XMIL (4.2-5.4); RDW 15.2 % (11.5-14.5); WBC 16.64 X1000 (4.8-10.8)
[2019-09-17 06:23] LABS: AGAP 12; ALBUMIN 2.6 g/dL (3.5-5.0); BUN 17 mg/dL (8-22); CALCIUM 8.2 mg/dL (8.8-10.2); CHLORIDE 108 mmol/L (98-107); COSMO 291; CREATININE 0.5 mg/dL (0.5-0.9); ESTIMATED GFR > 60; GLUCOSE 115 mg/dL (70-104); PHOSPHORUS 1.5 mg/dL (2.7-4.5); POTASSIUM 3.2 mmol/L (3.5-5.1); SODIUM 145 mmol/L (136-145); TCO2 25 mmol/L (25-35)
[2019-09-17 06:30] LABS: BANDS 12 % (0-1); LYMPHS 1 % (21-51); SEGS 87 % (42-75)
[2019-09-17] MEDS: PROTONIX IV SCH (08:30)
--- NOTE | 2019-09-17 09:12 | Diag Imaging Result Doc PS360 ---
EXAM: CHEST-PORTABLE HISTORY: dyspnea TECHNIQUE: Single view COMPARISON: 09/15/2019 FINDINGS: There is a tiny left effusion with basilar atelectasis. The lungs are otherwise well expanded. The right lung is clear. No cardiac megaly. No pulmonary edema. IMPRESSION: Small left pleural effusion with basilar atelectasis Electronically signed by Ulysses Cedillo 09/17/2019 9:10 AM
[2019-09-17] MEDS: MIRALAX PO SCH ×2 (12:51→21:30)
--- NOTE | 2019-09-17 13:01 | GASTROENTEROLOGY PROGRESS NOTE ---
DATE: 09/17/2019 SUBJECTIVE: Ms. Chiang is a 74-year-old, female. She was sitting on the recliner. Family is at the bedside. She is able to tell her name and her date of , but her speech is still garbled. The patient has denied having a bowel movement today. She is complaining of abdominal tenderness in the right lower quadrant. OBJECTIVE: Vital Signs: Temperature 97.8 degrees, pulse 105, respirations 20, blood pressure is 145/108, oxygen saturation 96% on 2 L nasal cannula. Her weight is 155 pounds. BMI is 26.6 kg/m2. General: She is alert and oriented x2, and in no acute distress. HEENT: Pale conjunctivae. No icterus. PERRL. Neck: Supple. Lungs: Clear to auscultation. Cardiovascular: The patient is tachycardic. Abdomen: Soft. Tender in the right lower quadrant. Mildly distended. Active bowel sounds heard in all 4 quadrants. Extremities: No clubbing, no cyanosis, no edema. Pedal pulses 2+ present bilaterally. Neurologic: She is alert and oriented x2. IMAGING AND LABORATORY DATA: WBCs of 16.64, RBCs 4.39, hemoglobin is 11.9, hematocrit is 37.8, platelet count is 128,000. Sodium 145, potassium 3.2, chloride 108, carbon dioxide 25, anion gap 12, BUN 17, creatinine 0.5, glucose 115, calcium is 8.2. Phosphorus 1.5. Albumin is 2.6. Her IgG subclass has been within normal limits. The patient's chest x-ray has shown small left pleural effusion with basilar atelectasis. IMPRESSION AND PLAN: - Acute pancreatitis - Hypokalemia - Leukocytosis - improved - Nausea and vomiting - resolved - GERD - controlled - Anemia - Constipation - Aphasia PLAN: Ms. Chiang is a 74-year-old, female with a history of lupus. GI is following her for acute pancreatitis. The patient's WBCs have been trending downward, but they are still elevated. Today, it is 16.64. She is currently receiving antibiotic, Zosyn. The patient is receiving IV fluids lactated Ringer's at 150 mL per hour. She is on PPIs daily. The patient has not had a bowel movement. We have started her on MiraLAX twice a day. We have started her on clear liquid diet. We will continue to provide supportive care to the patient, and follow the plan of care per PCP. This plan was discussed with Dr. De Leon. Please call us for any further questions or concerns. Dictated by RAYMUNDO Jain for Olegario De Leon MD Physician Attestation I have seen and examined the patient. I have discussed and reviewed the note by Lexie FONSECA and agree with findings and plan as documented (changes made in document). Unclear etiology of pancreatitis. Will consider MRCP as outpatient once acute inflammation resolves. ?medication effect since patient reports starting a couple medications as outpatient several days prior to presentation. MTDD
--- NOTE | 2019-09-17 14:42 | PROGRESS NOTE ---
DATE: 09/17/2019 SUBJECTIVE: I have seen and examined Ms. Licona today. She refers to be feeling a whole lot better. She was sitting up in a chair. Her speech is a lot better than yesterday. She looks more hydrated. I understand she was in some form of distress last night. A chest x-ray suggested that she had some fluid. OBJECTIVE: Vital Signs: Blood pressure is 145/108, pulse of 105, respirations are 20, temperature is 97.8 degrees, the patient is saturating 96%. General Examination: Ms. Licona is a 74-year-old, elderly, female. She was sitting in a chair. No distress. HEENT: Mucosa is pink and moist. Anicteric. Acyanotic. Neck: Supple. Respiratory System: Air entry is bilaterally reduced. A few crackles posteriorly. Cardiovascular: Regular rate and rhythm. GI: Abdomen was soft, distended. Bowel sounds present but hypoactive. There is a periumbilical hernia. Mild tenderness around the periumbilical area. Extremities: There was no pedal edema. BRAKE TESTER: The patient is awake, alert, oriented. Follows commands. Speech is a lot clearer. I do not think there are any deficits. Laboratory Data: WBC is down to 16.64, hemoglobin is 11.9, platelet count 128,000. Chemistry is also reviewed. Potassium is 3.2, phosphorus is 1.5. The patient's C-reactive protein is 364. ASSESSMENT: 1. Acute pancreatitis of unclear etiology. So far, investigations have been unremarkable. I am unsure if this is idiopathic. I think ab MRI at some time will need to be done to rule out any pancreatic anatomy variants. Gastroenterology is on board and will follow up with their further recommendations. For now, Ms. Licona has been stated on clear liquids. We will continue with the intravenous fluids and the pain management. 2. Clinical volume depletion. We will continue with the intravenous fluids. 3. Systemic inflammatory response syndrome secondary to underlying acute pancreatitis. 4. Recent fall with trauma and brain bleed. A CT scan yesterday was completely normal. Please refer to the details of the progress note that has also been written up by the medical student. cc: MD FABRIZIO Lion
[2019-09-18] MEDS: DILAUDID IV PRN ×2 (00:05→21:45)
[2019-09-18] MEDS: PHENERGAN IV PRN ×2 (00:05→21:44)
[2019-09-18] MEDS: ZOSYN 3.375 GM in NS 50 ML IV SCH ×4 (02:44→21:43)
[2019-09-18] MEDS: LR 1,000 ML IV SCH ×2 (03:18→06:08)
[2019-09-18 07:00] LABS: BASO# 0.01 X1000 (0.0-0.2); BASO% 0.1 % (0.0-0.8); EOS# 0.01 X1000 (0.0-0.7); EOS% 0.1 % (0.0-10.0); HEMATOCRIT 33.6 % (37.0-47.0); HEMOGLOBIN 10.6 g/dL (12.0-16.0); IMM GRAN# 0.06 X1000 (0.0-0.04); IMM GRAN% 0.5 % (0.0-0.5); LYMPH% 7.3 % (20.5-51.1); MCH 27.4 PG (27-31); MCHC 31.5 g/dL (33-37); MCV 86.8 FL (81-99); MONO# 0.67 X1000 (0.11-0.59); MONO% 6.1 % (1.7-9.3); MPV 10.2 FL (7.4-10.4); NEUT# 9.41 X1000 (1.4-6.5); NEUT% 85.9 % (42.2-75.2); PLT 130 X1000 (130-400); RBC 3.87 XMIL (4.2-5.4); RDW 14.9 % (11.5-14.5); WBC 10.96 X1000 (4.8-10.8)
[2019-09-18 07:19] LABS: AGAP 12; ALB/GLOB RATIO 0.8; ALBUMIN 2.3 g/dL (3.5-5.0); ALKALINE PHOSPHATASE 81 U/L (32-104); BUN 11 mg/dL (8-22); CHLORIDE 105 mmol/L (98-107); COSMO 286; CREATININE 0.5 mg/dL (0.5-0.9); ESTIMATED GFR > 60; GLUCOSE 68 mg/dL (70-104); GOT 33 U/L (10-30); GPT 18 U/L (10-36); MAGNESIUM 1.7 mg/dL (1.5-2.7); POTASSIUM 2.9 mmol/L (3.5-5.1); SODIUM 145 mmol/L (136-145); TCO2 28 mmol/L (25-35); TOTAL BILIRUBIN 0.97 mg/dL (0.20-1.00); TOTAL PROTEIN 5.3 g/dL (6.3-8.3)
[2019-09-18] MEDS: MIRALAX PO SCH ×3 (07:29→21:43)
[2019-09-18] MEDS: PROTONIX IV SCH ×2 (07:29→08:45)
[2019-09-18] MEDS: SODIUM CHLORIDE 0.9% INJ SCH (07:29)
[2019-09-18] MEDS ORDERED: POTASSIUM PHOSPHATE 40 MEQ in NS 250 ML IV ONE (08:30)
[2019-09-18 08:50] LABS: PHOSPHORUS 0.8 mg/dL (2.7-4.5)
--- NOTE | 2019-09-18 08:58 | Diag Imaging Result Doc PS360 ---
EXAM: CHEST-2 VIEWS 09/18/2019 HISTORY: wheezing TECHNIQUE: PA and lateral chest COMMENT: There is a small amount of pleural fluid bilaterally. This was also present on the left side on 09/17/2019. There are ill-defined basilar opacities bilaterally which also appears slightly worse on the right than on the previous study. IMPRESSION: Bilateral pleural effusions. Atelectasis versus pneumonia at both lower lobes. Electronically signed by Jose Luis Roger 09/18/2019 8:56 AM
[2019-09-18] MEDS ORDERED: LR 1,000 ML IV SCH (09:00)
[2019-09-18 09:08] LABS: C REACTIVE PROT QUANT 294.51 mg/L (0.00-5.00)
--- NOTE | 2019-09-18 12:57 | Diag Imaging Result Doc PS360 ---
EXAM: MRI BRAIN W/WO CONTRAST 09/18/2019 HISTORY: dysphasia. TECHNIQUE: T1 sagittal and axial, post gadolinium-enhanced axial with coronal reformation, axial T2, FLAIR, DWI and coronal gradient echo. COMMENT: There is increased T2-weighted signal intensity in the medial bases of both frontal lobes. There is some patchy periventricular hyperintensity as well and a small focus of subcortical hyperintensity is present in the anterior parietal cortex on the left with a similar focus on the right side. There are no previous MRI studies. There is some apparent petechial bleed in the affected portions of the frontal lobes and there is a small focus of hyperintense material present in the right subdural space posteriorly. In retrospect this is visible on the CT of 09/16/2019 although it is very subtle. There is no evidence of intraparenchymal restricted diffusion. There is meningeal enhancement primarily on the right side and particularly posteriorly. Otherwise there is no evidence of intracerebral abnormal gadolinium enhancement. IMPRESSION: Minimal right residual subdural hematoma with meningeal enhancement. The heel hemorrhage in the inferior anterior frontal lobes bilaterally which are probably related to previous trauma. The findings were discussed with Roney Calle MD at 09/18/2019 12:54 PM. Electronically signed by Jose Luis Roger 09/18/2019 12:54 PM
--- NOTE | 2019-09-18 13:07 | GASTROENTEROLOGY PROGRESS NOTE ---
DATE: 09/18/2019 SUBJECTIVE: Ms. Chiang is a 74-year-old, female. She was sitting on the chair. Family is at the bedside. The patient was much more awake, alert. Her speech is clear but still a little bit difficult to understand. The patient has denied having any bowel movements today. She was on a clear liquid diet, and she was able to tolerate clear liquids well. OBJECTIVE: Vital Signs: Temperature 97.4 degrees, pulse 86, respirations 20, blood pressure 132/76, oxygen saturation 94% on room air. The patient's weight is 155 pounds, BMI is 26.6 kg/m2. General: She is alert and oriented x2, and in no acute distress. HEENT: Pale conjunctivae. No icterus. PERRL. Neck: Supple. Lungs: Clear to auscultation. Cardiovascular: Regular rate and rhythm. Abdomen: Soft, distended, tender in the right upper quadrant. Hypoactive bowel sounds heard in all 4 quadrants. Extremities: No clubbing, no cyanosis, no edema. Pedal pulses 2+ present bilaterally. Neurologic: Alert and oriented x2. LABORATORY DATA: WBCs are 10.96, RBCs 3.87, hemoglobin 10.6, hematocrit is 33.6, platelet count is 130,000. Sodium 145, potassium 2.9, chloride 105, carbon dioxide 28, anion gap 12, BUN is 11, creatinine is 0.5, glucose 68, calcium is 8.0. Phosphorus 0.8, magnesium 1.7. Total bilirubin 0.97, AST 33, ALT 18, alkaline phosphatase 81, albumin is 2.3. IMAGING: Chest x-ray showed bilateral pleural effusion, atelectasis versus pneumonia in both lower lobes. IMPRESSION AND PLAN: - Acute pancreatitis - Hypokalemia - Leukocytosis - improved - Nausea and vomiting - resolved - GERD - controlled - Anemia - Constipation PLAN: Ms. Chiang is a 74-year-old, female with a history of lupus. GI is following her for acute pancreatitis. The patient is currently on antibiotic, Zosyn, every 6 hours. She is on antiemetic Phenergan and Zofran, for nausea and vomiting, which has been under control. The patient is on PPIs daily. She is on a bowel regimen, MiraLAX, 17 grams p.o. twice a day. We have advanced her diet to low- fat diet. Her WBCs have been trending down. Today, it is 10.96. We will continue to monitor the patient, and follow the plan of care per PCP. This plan was discussed with Dr. De Leon. Please call us for any further questions or concerns. Dictated by RAYMUNDO Jain for Olegario De Leon MD Physician Attestation I have seen and examined the patient. I have discussed and reviewed the note by Lexie FONSECA and agree with findings and plan as documented. Changes made in document above. Ok to stop zosyn MTDD
[2019-09-18] MEDS ORDERED: GLYCERIN ADULT PR ONE (18:20)
[2019-09-18] MEDS ORDERED: LACTULOSE PO ONE (18:20)
[2019-09-19] MEDS: ALBUTEROL NEB INH PRN ×4 (00:53→11:26)
[2019-09-19] MEDS: ZOSYN 3.375 GM in NS 50 ML IV SCH ×2 (03:16→09:20)
[2019-09-19] MEDS ORDERED: LASIX IV ONE (04:48)
[2019-09-19 06:39] LABS: BASO# 0.02 X1000 (0.0-0.2); BASO% 0.2 % (0.0-0.8); EOS# 0.07 X1000 (0.0-0.7); EOS% 0.6 % (0.0-10.0); HEMATOCRIT 34.2 % (37.0-47.0); HEMOGLOBIN 10.8 g/dL (12.0-16.0); IMM GRAN# 0.15 X1000 (0.0-0.04); IMM GRAN% 1.4 % (0.0-0.5); LYMPH# 0.66 X1000 (1.2-3.4); LYMPH% 6.1 % (20.5-51.1); MCH 26.9 PG (27-31); MCHC 31.6 g/dL (33-37); MCV 85.3 FL (81-99); MONO# 0.77 X1000 (0.11-0.59); MONO% 7.1 % (1.7-9.3); MPV 10.1 FL (7.4-10.4); NEUT# 9.18 X1000 (1.4-6.5); NEUT% 84.6 % (42.2-75.2); PLT 155 X1000 (130-400); RBC 4.01 XMIL (4.2-5.4); RDW 14.9 % (11.5-14.5); WBC 10.85 X1000 (4.8-10.8)
--- NOTE | 2019-09-19 07:12 | Diag Imaging Result Doc PS360 ---
EXAM: CHEST-PORTABLE 09/19/2019 HISTORY: dyspnea TECHNIQUE: AP portable at 0603 COMMENT: There is some fluid in the left costophrenic angle. The atelectasis present in the lung bases on 09/18/2019 has improved slightly. IMPRESSION: Improved atelectasis. Left pleural effusion. Electronically signed by Jose Luis Roger 09/19/2019 7:09 AM
[2019-09-19 07:33] LABS: AGAP 15; ALBUMIN 2.6 g/dL (3.5-5.0); BUN 8 mg/dL (8-22); CALCIUM 8.2 mg/dL (8.8-10.2); CHLORIDE 101 mmol/L (98-107); COSMO 282; CREATININE 0.3 mg/dL (0.5-0.9); ESTIMATED GFR > 60; GLUCOSE 107 mg/dL (70-104); POTASSIUM 2.6 mmol/L (3.5-5.1); SODIUM 142 mmol/L (136-145); TCO2 26 mmol/L (25-35)
[2019-09-19] MEDS ORDERED: POTASSIUM PHOSPHATE 60 MEQ in NS 250 ML IV ONE (08:35)
[2019-09-19] MEDS ORDERED: MAGNESIUM SULFATE 2 GM/S.W.I. 2 GM/50 ML IVPB IV ONE (08:37)
[2019-09-19] MEDS: MIRALAX PO SCH (09:20)
[2019-09-19] MEDS: SODIUM CHLORIDE 0.9% INJ SCH (09:20)
[2019-09-19] MEDS: PROTONIX IV SCH (09:20)
--- NOTE | 2019-09-19 10:26 | GASTROENTEROLOGY PROGRESS NOTE ---
DATE: 09/19/2019 SUBJECTIVE: Ms. Chiang is a 74-year-old, female, resting in bed. The patient has denied any nausea, vomiting, or abdominal pain. The patient is on a low-fat diet, and she mentioned that she just ate a little bit of her breakfast because she did not have any appetite. The patient did mention having 1 bowel movement this morning. The patient's speech was very clear and understandable . OBJECTIVE: Vital Signs: Temperature 99.4 degrees, pulse 73, respirations 15, blood pressure 116/45, oxygen saturation 95% on 2 L nasal cannula. The patient's weight is 154 pounds, BMI is 26.5 kg/m2. General: The patient is alert and oriented x3, in no acute distress. HEENT: Pale conjunctivae. No icterus. PERRL. Neck: Supple. Lungs: Clear to auscultation. Cardiovascular: Regular rate and rhythm. Abdomen: Soft, distended, nontender. Active bowel sounds heard in all 4 quadrants. Extremities: No clubbing, no cyanosis, no edema. Pedal pulses 2+ present bilaterally. Neurologic: She is alert and oriented x3. LABORATORY DATA: WBCs are 10.85, RBC 4.0, hemoglobin is 10.8, hematocrit is 34.2, platelet count is 155,000. Sodium 142, potassium 2.6, chloride 101, carbon dioxide 26, anion gap 15, BUN 8, creatinine 0.3, glucose 107, calcium 8.2, phosphorus 1.0, albumin is 2.6. IMAGING: Chest x-ray has shown improved atelectasis, left pleural effusion. IMPRESSION AND PLAN: - Acute pancreatitis - Hypokalemia - Hypophosphatemia - Leukocytosis - resolved - Nausea and vomiting - resolved - GERD - controlled - Anemia - Constipation - improved PLAN: Ms. Chiang is a 74-year-old, female with a history of lupus. GI is following her for her acute pancreatitis. The patient is alert and oriented x3 today, and her speech is much more clear. The patient's nausea and vomiting is under control. She is receiving Phenergan and Zofran for her nausea and vomiting. We will continue the patient with PPIs daily. The patient is on a bowel regimen, MiraLAX 17 grams twice a day, she did have a bowel movement today. The patient's potassium is 2.6. She is receiving potassium phosphate @ 62 mL/hr per PCP. We will continue to monitor the patient, and follow the plan of care per PCP. This plan was discussed with Dr. De Leon. Please call us for any further questions or concerns. Dictated by RAYMUNDO Jain for Olegario De Leon MD Physician Attestation I have seen and examined the patient. I have discussed and reviewed the note by Lexie FONSECA and agree with findings and plan as documented. Replete lytes. Follow-up with Dr. De Leon in 2-4 weeks. MTDD
[2019-09-19 12:05] VITALS: BP 114/72
--- NOTE | 2019-09-20 14:56 | DISCHARGE SUMMARY ---
ADMISSION DATE: 09/14/2019 DISCHARGE DATE: 09/19/2019 LENGTH OF STAY: Five days. CONSULTATIONS DURING THIS ADMISSION: GI was consulted. The patient was seen by Dr. De Leon. INVASIVE PROCEDURES DONE DURING THIS ADMISSION.: None. IMAGING STUDIES OF SIGNIFICANCE: 1. CT scan of the abdomen and pelvis showed likely pancreatitis, colonic diverticulosis, constipation, prominent atherosclerosis, bilateral nephrolithiasis. 2. Ultrasound of the abdomen showed apparent pancreatitis but no gallbladder disease. 3. A KUB showed constipation. An MRI of the brain showed minimal right residual subdural hematoma with meningeal enhancement and a healed hemorrhage in the inferior anterior frontal lobes, bilateral, related to previous trauma. There was no acute infarct. ADMISSION DIAGNOSES: 1. Acute pancreatitis. 2. Leukocytosis. 3. Lupus. 4. Hypokalemia. DIAGNOSES AT THE TIME OF DISCHARGE: 1. Acute pancreatitis of on undetermined etiology. 2. Clinical volume depletion, improved. 3. Systemic inflammatory response syndrome secondary to acute pancreatitis. 4. Recent fall with head trauma associated with intraparenchymal bleed. Subsequent MRI seems to be stable and actually improving. 5. Colonic diverticulosis. 6. Constipation, improved. 7. Aortic atherosclerosis. 8. Bilateral nephrolithiasis. Patient has been advised on adequate hydration. 9. Lupus. The patient is on Plaquenil. 10. Hypothyroidism. DISCHARGE MEDICATIONS: 1. Simvastatin. 2. Plaquenil 200 mg p.o. daily. 3. Duloxetine 30 mg p.o. daily. 4. Reglan 10 mg p.o. at bedtime. 5. Famotidine 40 mg b.i.d. 6. Levothyroxine 50 mcg p.o. daily. 7. Cephalexin 500 b.i.d. 8. MiraLAX. PRESENTING COMPLAINT: Abdominal pain, nausea and vomiting . HISTORY OF PRESENTING COMPLAINT: Ms. Licona is a 74-year-old female who has a history of multiple comorbidities. She recently sustained a head injury and was admitted to the trauma ICU in [place]. She got discharged and seemed to have been doing well until about a day or 2 prior to her current hospitalization. Ms. Licona started having some abdominal discomfort radiating to her back associated with some nausea and vomiting. She came to the emergency room, where she was evaluated. A CT scan of the abdomen reveal acute pancreatitis. Her laboratory data also revealed an initial lipase level of 2234. Ms. Licona was admitted to the intermediate floor for medical management. HOSPITAL COURSE: Ms. Licona was kept n.p.o. initially and started on IV fluids. Pain was managed with opioids. She did show improvement throughout the hospital course. GI was consulted. The patient was seen by Dr. De Leon. Ms. Licona's WBCs were extremely elevated, so she was prophylactically started on antibiotics. White cell count continues to trend down. At the time of the discharge, it has come down to 10.85 from 26.73 on admission. Throughout the workup, her gallbladder was unremarkable. She also does not seem to have any alcohol use. Her triglyceride levels were also unremarkable. The IgG4 came back negative. Ms. Licona has been on medications that have potential to cause pancreatic inflammation, including hydrochlorothiazide and Macrobid. Both of these medications were discontinued, and she has been advised to follow up with her primary care doctor. Ms. Licona had been on Macrobid because of recurrent urinary tract infections. I have I have started her on Keflex and have advised that she follow up with her primary care to make further determinations on management. Ms. Licona was also found to have phosphorus and potassium low, both of which where replaced. Her C-reactive protein was 364. This has been progressively getting down. This morning it is 245. Ms. Licona has been tolerating her diet, and she has also been having regular bowel movements. We think she is now fairly stable for discharge. FOLLOWUP: She is going to be following up with Dr. Doctor De Leon and Dr. Youssef. TIME SPENT FOR DISCHARGE: Thirty-five minutes. cc: Roney Calle MD
== END 2019-09-19 17:17 | disposition home or self-care (01) | DRG 871 ==
LOC: ED 12:52 → 2N 20:29 → SUATTDRO 20:29 → 2N 09-16 17:51
PROVIDERS: ATTEND Internal Medicine